=== PATIENT | female | born 1990 | race Caucasian/White ===

== ENCOUNTER 2021-01-13 17:20 | Outpatient (RCR) | payer BC, SELFPAY ==
[2021-01-14] MEDS: RHO(D) IMMUNE GLOBULIN 300 MCG/2 ML SYRINGE IM (17:34)
== END 2021-04-13 23:59 | disposition home or self-care (01) ==
LOC: ANHLAB 17:20
PROVIDERS: Visit Provider Obstetrics & Gynecology
DX: Z29.13 Encounter for prophylactic Rho(D) immune globulin (principal); O36.0190 Maternal care for anti-D [Rh] antibodies, unspecified trimester, not applicable or unspecified; O41.8X90 Other specified disorders of amniotic fluid and membranes, unspecified trimester, not applicable or unspecified; Z3A.00 Weeks of gestation of pregnancy not specified
CPT/HCPCS: 36415; 85461; 90384; 96372; J2790

== ENCOUNTER 2021-05-17 14:21 | Outpatient (RCR) | payer BC, SELFPAY ==
[2021-05-16 08:34] LABS: Hemoglobin 10.3 g/dL (12.0-15.0)
[2021-05-16 08:45] LABS: Glucose 1 Hour PP 50gm Dose 86 mg/dL
[2021-05-16 09:43] LABS: HIV 1/2 Ab P24 Ag Result Negative (Negative)
[2021-05-16 10:56] LABS: Rapid Plasma Reagin Non-Reactive (NonReactive)
[2021-05-17] MEDS: RHO(D) IMMUNE GLOBULIN 300 MCG/2 ML SYRINGE IM (16:59)
== END 2021-05-17 14:25 | disposition home or self-care (01) ==
LOC: ANHLAB 14:21
PROVIDERS: Visit Provider Advanced Practice Midwife
DX: Z11.4 Encounter for screening for human immunodeficiency virus [HIV] (principal); Z29.13 Encounter for prophylactic Rho(D) immune globulin; O36.0130 Maternal care for anti-D [Rh] antibodies, third trimester, not applicable or unspecified; Z3A.00 Weeks of gestation of pregnancy not specified
CPT/HCPCS: 36415; 82947; 85014; 85018; 85461; 86592; 86703; 90384; 96372; G0432; J2790

== ENCOUNTER 2021-07-27 17:28 | Inpatient (IN) | payer BC, SELFPAY ==
[2021-07-27] VITALS (12 sets, daily range): BP systolic 125–147; BP diastolic 76–98; PULSE 61–105
[2021-07-27 18:00] LABS: Basophils Percent Auto 0.3 % (0.2-1.2); Eosinophils Absolute Auto 0.1 K/mm3 (0-0.3); Eosinophils Percent Auto 0.5 % (0-4.4); Hematocrit 35.3 % (37.0-47.0); Hemoglobin 11.6 g/dL (12.0-15.0); Immature Granulocyte Absolute 0.03 K/mm3 (0.00-0.031); Immature Granulocyte Percent A 0.3 % (0-0.5); Lymphocytes Absolute Auto 2.35 K/mm3 (0.9-3.2); Lymphocytes Percent Auto 22.5 % (18.3-44.2); Mean Corpuscular HGB Conc 32.9 g/dl (32-36); Mean Corpuscular Hemoglobin 30.1 pg (26-34); Mean Corpuscular Volume 91.7 fl (80-100); Mean Platelet Volume 10.7 fl (7.4-10.4); Monocytes Absolute Auto 0.6 K/mm3 (0.1-0.6); Monocytes Percent Auto 5.6 % (2.6-8.5); Neutrophils Absolute Auto 7.4 K/mm3 (1.3-6.7); Neutrophils Percent Auto 70.8 % (45.5-73.1); Platelet Count Result 304 k/mm3 (150-375); Red Blood Count 3.85 M/mm3 (4.2-5.4); Red Cell Distribution Width 14.2 % (11.5-14.5); White Blood Count 10.4 K/mm3 (4.5-10.0)
[2021-07-27 18:10] LABS: Add Urine Microscopic? YES; Alanine Aminotransferase 20 U/L (4-35); Albumin Level 3.8 g/dL (3.5-5.1); Alkaline Phosphatase 127 U/L (38-126); Anion Gap 7 mmol/L (8-16); Appearance Urine Cloudy (Clear); Aspartate Amino Transferase 31 U/L (14-36); Bacteria Urine Trace /hpf; Bilirubin Urine Negative (Negative); Bilirubin,Total 0.3 mg/dL (0.2-1.3); Blood Urea Nitrogen 8 mg/dL (7-17); Blood Urine Negative (Negative); Carbon Dioxide 21 mmol/L (22-30); Chloride 106 mmol/L (98-107); Color Urine Yellow (Yellow); Estimated Glomerular Filt Rate > 60; Glucose 76 mg/dL (65-110); Glucose Urine UA Negative (Negative); Ketones Urine Negative (Negative); Leukocyte Esterase Ur Negative LEU/UL (NEGATIVE); Mucus Urine Rare /lpf; Nitrate Urine Negative (Negative); Potassium 3.5 mmol/L (3.4-5.0); Protein Urine Negative (Negative); RBC Urine 0-2 /hpf (0-2); Sodium 134 mmol/L (137-145); Specific Grav Ur 1.011 (1.001-1.035); Squamous Epithelial Cell Urine Occasional /hpf (Few); Uric Acid 3.6 mg/dL (2.5-7.5); Urobilinogen Urine Negative mg/dL (<2.0); WBC Urine 0-3 /hpf (0-3)
[2021-07-27 18:11] LABS: Total Protein Urine Random 12 mg/dL; Ur Ttl Prot Creatinine Ratio 0.27 mg/mg (0-0.20)
--- NOTE | 2021-07-27 18:35 | PC.NURSE ---
Ger Mccarthy CNM on unit and has reviewed lab results and updated on BP's. Order received to continue monitoring BP's for another 4 hrs.
--- NOTE | 2021-07-27 20:01 | PC.NURSE ---
Pt sitting up eating dinner.
--- NOTE | 2021-07-27 20:43 | PC.NURSE ---
Ger Mccarthy CNM called to check on pt. Updated on BP's. Orders received to admit for induction of labor using Cervidil. CNM informed we wouldn't be able to start the induction for awhile.
--- NOTE | 2021-07-27 22:25 | PC.NURSE ---
Transferred to labor room 105 per wheelchair with and personal belongings.
[2021-07-28] VITALS (97 sets, daily range): BP systolic 98–159; BP diastolic 60–105; PULSE 66–182; RESP 18–20; TEMP 36.7–38.1; O2SAT 97–100; BMI 31.2
--- NOTE | 2021-07-28 00:37 | WPDOBADMIT ---
Obstetrics - Admit Note Admission Note: record reviewed. No pertinent additions to the history and/or any subsequent changes in the physical findings that are not consistent with the expected course of the were found. pt admitted to with elevated blood pressures in office and now on admission, discussed with pt gestational hypertension and will proceed with MIL, plan cervdail, anticipate vaginal delivery Additions to the history and/or subsequent changes in the physical findings follow. None.
--- NOTE | 2021-07-28 03:00 | PC.NURSE ---
Pt sleeping. Unable to start induction due to acuity of unit and it would be unsafe.
[2021-07-28] MEDS: DINOPROSTONE 10 MG VAG INSERT VAGINAL (05:10)
[2021-07-28 06:54] LABS: Rapid Plasma Reagin Non-Reactive (NonReactive)
[2021-07-28] MEDS: CALCIUM CARBONATE (TUMS) 500 MG (200 MG ELEMENTAL) PO ×2 (10:49→23:35)
[2021-07-28] MEDS: FAMOTIDINE 20 MG/2 ML VIAL IV PUSH ×2 (11:57→21:06)
[2021-07-28] MEDS: ACETAMINOPHEN 325 MG TABLET 650 MG PO (15:00)
[2021-07-28] MEDS: fentaNYL CITRATE INJ (*CRX) 100 MCG/2 ML VIAL 50 MCG IV PUSH ×3 (16:43→18:30)
--- NOTE | 2021-07-28 16:51 | PM.OBPNLAB ---
Pain Control Date/time seen: 07/28/21 16:51 FHR category 1, contractions irregular, SVE /-2, AROM large amount of clear odorless fluid, plan pitocin and anticipate vaginal delivery
--- NOTE | 2021-07-28 17:08 | WPDANESEPP ---
Anes - Eval Pre Procedure Procedure: labor epidural Date/Time: 07/28/21 17:08 Surgeon: ze Pre Op Diagnosis: Induction of Labor Patient Data Age: 30 Gender: F Height: 1.6 m Weight: 80 kg Last Vital Signs Temp 37.0 C 07/28/21 16:58 Pulse 92 07/28/21 16:56 Resp 20 07/28/21 16:58 BP 125/89 07/28/21 16:56 Allergies Allergy/AdvReac Type Severity Reaction Status Date / Time No Known Allergies Allergy Verified 07/16/21 16:06 Home Medications Medication Instructions Recorded Confirmed Type PNV no.[id number] acid 1 tablet PO DAILY 07/28/21 07/28/21 History [Complete ] aspirin 81 mg PO DAILY 07/28/21 07/28/21 History ferrous sulfate 27 mg PO DAILY 07/28/21 07/28/21 History Laboratory Tests 07/27/21 07/27/21 07/27/21 17:50 17:50 17:50 WBC 10.4 K/mm3 H K/mm3 (4.5-10.0) RBC 3.85 M/mm3 L M/mm3 (4.2-5.4) Hgb 11.6 g/dL L g/dL (12.0-15.0) Hct 35.3 % L % (37.0-47.0) MCV 91.7 fl fl (80-100) MCH 30.1 pg pg (26-34) MCHC 32.9 g/dl g/dl (32-36) RDW 14.2 % % (11.5-14.5) Plt Count 304 k/mm3 k/mm3 (150-375) MPV 10.7 fl H fl (7.4-10.4) Immature Gran % (Auto) 0.3 % % (0-0.5) Neut % (Auto) 70.8 % % (45.5-73.1) Lymph % (Auto) 22.5 % % (18.3-44.2) Larue % (Auto) 5.6 % % (2.6-8.5) Eos % (Auto) 0.5 % % (0-4.4) Baso % (Auto) 0.3 % % (0.2-1.2) Lymph # (Auto) 2.35 K/mm3 K/mm3 (0.9-3.2) Larue # (Auto) 0.6 K/mm3 K/mm3 (0.1-0.6) Eos # (Auto) 0.1 K/mm3 K/mm3 (0-0.3) Baso # (Auto) 0.0 K/mm3 K/mm3 (0.0-0.1) Abs Immat Gran (auto) 0.03 K/mm3 K/mm3 (0.00-0.031) Absolute Neuts (auto) 7.4 K/mm3 H K/mm3 (1.3-6.7) Absolute Nucleated RBC 0.0 K/mm3 K/mm3 (0.0-0.012) Nucleated RBC % 0.0 % % (0.0-0.2) Sodium Potassium Chloride Carbon Dioxide Anion Gap BUN Creatinine Estim Creat Clear Calc Estimated GFR Glucose Uric Acid Calcium Total Bilirubin AST ALT Alkaline Phosphatase Total Protein Albumin Urine Color Yellow (Yellow) Urine Appearance Cloudy H (Clear) Urine pH 7.0 (5.0-9.0) Ur Specific [place] 1.011 (1.001-1.035) Urine Protein Negative mg/dL mg/dL (Negative) Urine Glucose (UA) Negative mg/dL mg/dL (Negative) Urine Ketones Negative mg/dL mg/dL (Negative) Ur Blood (Man) Negative (Negative) Urine Nitrate Negative (Negative) Urine Bilirubin Negative (Negative) Urine Urobilinogen Negative mg/dL mg/dL (<2.0) Ur Leukocyte Esterase Negative REYNA/UL REYNA/UL (NEGATIVE) Urine RBC 0-2 /hpf /hpf (0-2) Urine WBC 0-3 /hpf /hpf (0-3) Ur Squamous Epith Cells Occasional /hpf /hpf (Few) Urine Bacteria Trace /hpf /hpf Urine Mucus Rare /lpf /lpf U Random Total Protein 12 mg/dL mg/dL Urine Creatinine 45.0 mg/dL mg/dL Protein/Creat Ratio 2 0.27 mg/mg H mg/mg (0-0.20) RPR Blood Type Antibody Screen Antibody Identification Antigen Identification CLEMENTE, IgG Interpret CLEMENTE, Poly Interpret CLEMENTE, Complement Interp 07/27/21 07/28/21 07/28/21 17:50 04:48 04:48 WBC RBC Hgb Hct MCV MCH MCHC RDW Plt Count MPV Immature Gran % (Auto) Neut % (Auto) Lymph % (Auto)
[2021-07-28] MEDS: OXYTOCIN 30 UNITS/NS 500 ML 30 UNITS/500 ML BAG IV CONT (17:54)
[2021-07-28] MEDS: LACTATED RINGERS 1,000 ML 125 ML IV CONT ×2 (17:54→19:44)
[2021-07-28] MEDS: ONDANSETRON INJ 4 MG/2 ML VIAL IV PUSH (23:44)
[2021-07-29] VITALS (99 sets, daily range): BP systolic 105–144; BP diastolic 49–96; PULSE 56–158; RESP 16–20; TEMP 36.7–38.1; O2SAT 96–100
[2021-07-29] MEDS: ACETAMINOPHEN 500 MG TABLET 1000 MG PO (00:04)
[2021-07-29] MEDS: AMPICILLIN 2 GM/NS 100 ML 2 GM/100 ML BAG IVPB (00:04)
[2021-07-29] MEDS: AMPICILLIN 1 GM/NS 50 ML 1 GM/50 ML BAG IVPB (04:11)
--- NOTE | 2021-07-29 05:21 | PM.OBPRVD ---
OB - Delivery Note Procedure Delivery date: 07/29/21 Procedure: vaginal delivery Induction method: AROM, Per Pitocin Protocol and Per Cervidil Protocol Delivery monitor: External FHT, External Uterine and Internal Uterine Route of delivery: Laceration Description: Perineal - 2nd Degree Delivery repair: vicryl Specimen: Yes Quantitative Blood Loss (ml): 302 Anesthesia type: Epidural Disposition: Floor Baby Date of : 07/29/21 Time of : 05:01 Weeks of gestation at delivery: 38 gender: Female Weight (pounds): 7 Weight (ounces): 5 presentation: vertex position: Left Occiput Anterior Placenta delivery description: Spontaneous Cord Vessel Description: 3 Vessels, Nuchal Cord, Loose, Reduced, Clamped/Cut and Delayed Cord Clamping score one minute: 8 score five minutes: 9 Narrative: mother and baby in stable condition
[2021-07-29] MEDS: WITCH HAZEL 40 PADS 1 PAD TOPICAL ×2 (05:44→07:17)
[2021-07-29] MEDS: BENZOCAINE 20% AER SPR (*SP) 56 GM CAN 1 SPRAY TOPICAL ×2 (05:44→07:17)
[2021-07-29] MEDS: OXYTOCIN 30 UNITS/NS 500 ML 30 UNITS/500 ML BAG 125 UNITS IV CONT (05:44)
[2021-07-29] MEDS: IBUPROFEN 600 MG TABLET PO ×2 (06:35→14:24)
--- NOTE | 2021-07-29 08:02 | PC.NURSE ---
Patient transferred to post room #291 via wheelchair. Support person present. Oriented to unit, room, information board, rooming in, admission packet and security measures. Patient verbalizes understanding.
[2021-07-29] MEDS: HYDROcodone/acetaminophen (*CRX) 5-325 MG TABLET 1 TAB PO ×2 (08:45→16:09)
[2021-07-29] MEDS: DOCUSATE SODIUM 100 MG CAPSULE PO (14:24)
[2021-07-29] MEDS: MULTIVIT/MIN/PREN/FOL AC/IRON TABLET 1 TAB PO (16:09)
[2021-07-30] MEDS: HYDROcodone/acetaminophen (*CRX) 5-325 MG TABLET 1 TAB PO ×5 (05:03→21:04)
[2021-07-30] MEDS: IBUPROFEN 600 MG TABLET PO ×2 (05:04→14:15)
[2021-07-30 05:19] LABS: Hematocrit 32.6 % (37.0-47.0); Hemoglobin 10.7 g/dL (12.0-15.0)
--- NOTE | 2021-07-30 07:40 | WPDANLDPN2 ---
Anes-Prog Note L&D Date/Time: 07/30/21 07:40 Comfortable throughout: labor and delivery Neuraxial method: epidural Epidural/Spinal procedure site: clean & non-tender Neuro status: Neuro function grossly intact. Cardiovascular status: normal Respiratory status: normal Airway patency: baseline Mental status: baseline Post-Op hydration status: normal Vital Signs: Last Vital Signs Temp 36.7 C 07/29/21 19:20 Pulse 82 07/29/21 19:20 Resp 16 07/29/21 19:20 BP 129/78 07/29/21 19:20 Pulse Ox 100 07/29/21 15:45 Pain score (VAS): 2 I/O: Intake & Output 07/29/21 07/29/21 07/30/21 15:59 23:59 07:59 Intake Total 1480 100 500 Output Total 1000 1700 Balance 480 100 -1200 Post-procedural complaints: none Patient feedback: Patient satisfied with anesthetic care.
[2021-07-30 08:00] VITALS: BP 124/70; PULSE 158; RESP 50; TEMP 36.8; O2SAT 100
--- NOTE | 2021-07-30 08:50 | PM.OBPNVD ---
OB - PN: Subj Subjective Date/time seen: 07/30/21 08:50 Patient comments: no complaints baby status: doing well Cameron feeding status: exclusively bottle feeding OB - PN: Obj Data Labs CBC & Chem 7: 07/30/21 05:08 07/27/21 17:50 Labs: Laboratory Results - last 24 hr 07/30/21 07/30/21 05:08 05:08 Hgb 10.7 L Hct 32.6 L Blood Type B Negative Antibody Screen Positive Antibody Identification Inconclusive Antigen Identification Not Reportable CLEMENTE, IgG Interpret Negative CLEMENTE, Poly Interpret Negative CLEMENTE, Complement Interp Negative OB - PN A/P Plan day: 1 Plan: routine care Time Spent With Patient Time: Total time spent is greater than 50% in coordination of care (as documented) at patient's floor/unit and/or counseling patient: Review of Systems Review of Systems: All systems reviewed & are unremarkable except as noted in HPI and below Exam Const: General: cooperative, healthy appearing and comfortable
[2021-07-30] MEDS: DOCUSATE SODIUM 100 MG CAPSULE PO ×2 (09:26→17:09)
[2021-07-30] MEDS: WITCH HAZEL 40 PADS 1 PAD TOPICAL (09:29)
[2021-07-30] MEDS: BENZOCAINE 20% AER SPR (*SP) 56 GM CAN 1 SPRAY TOPICAL (09:29)
[2021-07-30] MEDS: RHO(D) IMMUNE GLOBULIN 300 MCG/2 ML SYRINGE IM (18:21)
[2021-07-30 19:40] VITALS: BP 137/90; PULSE 62; RESP 16; TEMP 37.1; O2SAT 99
[2021-07-31] VITALS: BP 120/81; PULSE 61
[2021-07-31 03:30] VITALS: BP 132/86; PULSE 67
[2021-07-31] MEDS: HYDROcodone/acetaminophen (*CRX) 5-325 MG TABLET 1 TAB PO ×2 (03:33→07:57)
[2021-07-31] MEDS: BENZOCAINE 20% AER SPR (*SP) 56 GM CAN 1 SPRAY TOPICAL (07:57)
[2021-07-31] MEDS: WITCH HAZEL 40 PADS 1 PAD TOPICAL (07:57)
[2021-07-31] MEDS: DOCUSATE SODIUM 100 MG CAPSULE PO (07:58)
[2021-07-31] MEDS: IBUPROFEN 600 MG TABLET PO (07:58)
[2021-07-31 08:00] VITALS: BP 135/90; PULSE 60; RESP 18; TEMP 36.8
--- NOTE | 2021-07-31 09:59 | PM.OBPNVD ---
OB - PN: Subj Subjective Date/time seen: 07/31/21 09:59 Patient comments: no complaints, pain well controlled and tolerating diet OB - PN: Obj Data Labs CBC & Chem 7: 07/30/21 05:08 07/27/21 17:50 Labs: Laboratory Results - last 24 hr 07/30/21 05:08 Blood Type B Negative Antibody Screen Positive Antibody Identification Inconclusive CLEMENTE, IgG Interpret Negative CLEMENTE, Poly Interpret Negative CLEMENTE, Complement Interp Negative Screen Negative Baby's Blood Type B pos Baby's CLEMENTE Negative Doses of RhIg Required 1 OB - PN A/P Plan day: 2 Plan: routine care and discharge home Time Spent With Patient Time: Total time spent is greater than 50% in coordination of care (as documented) at patient's floor/unit and/or counseling patient: Exam Const: General: comfortable and no acute distress Resp: Effort & Inspection: normal respiratory effort Auscultation: no rales, no rhonchi and no wheezes Cardio: Rate: regular rate Heart sounds: no click, no murmurs and no rubs GI: GI Palp: Yes Soft to palpation and No Tenderness to palpation present (GI) Auscultation: normal bowel sounds Extrem: General: normal to inspection, no pedal edema and no calf tenderness
--- NOTE | 2021-07-31 10:00 | PM.OBDSVD ---
DS: Admitting Diagnosis Discharge Date 07/31/21 Admitting Diagnosis term gestation DS: Discharge Diagnosis Discharge Diagnosis (1) Term delivered: Code(s): O80 - Encounter for full-term uncomplicated delivery Status: Acute OB - DS: Summary OB Procedures : None OB Procedures Intrapartum: Spontaneous Vag Delivery OB Procedures: : None Time Spent with Patient Time attestation: Total time spent providing and/or coordinating discharge services: DS: Data Data Completed and Pending Pending studies at discharge: Pending at discharge 07/29/21 05:15 Surgical [PTH] Routine Labs on day of discharge: Labs from last 24 hours 07/30/21 05:08 Blood Type B Negative Antibody Screen Positive Antibody Identification Inconclusive CLEMENTE, IgG Interpret Negative CLEMENTE, Poly Interpret Negative CLEMENTE, Complement Interp Negative Screen Negative Baby's Blood Type B pos Baby's CLEMENTE Negative Doses of RhIg Required 1 Discharge Plan Discharge Discharging Clinician: Katiana Mckinney Patient Disposition: Home, Self-Care Activity: pelvic rest Diet: regular Patient Instructions: Antibiotic Form Stand Alone Forms: General Discharge Information Follow-up/Referrals: Katiana Mckinney MD [Physician] - Discharge Medications: Continued aspirin 81 mg Tablet 81 mg PO DAILY RF: 0 ferrous sulfate 27 mg iron Tablet 27 mg PO DAILY RF: 0 Complete 30-975 mg-mcg Tablet 1 tablet PO DAILY RF: 0 Date of admission: 07/27/21 17:28 Primary Care Provider: Jessica Mccarthy Admitting Provider: Katiana Mckinney Attending physician on admission: Katiana Mckinney Condition: Stable
[2021-08-01 09:23] VITALS: BP 128/96; PULSE 74; RESP 18; TEMP 37.1; O2SAT 99
== END 2021-07-31 12:00 | disposition home or self-care (01) | DRG 807 ==
LOC: ANHLDR 07-28 07:15 → ANHOB2 07-31 10:01
PROVIDERS: Admitting Provider Obstetrics & Gynecology; PCP Advanced Practice Midwife; Visit Provider Obstetrics & Gynecology
DX: O75.2 Pyrexia during labor, not elsewhere classified (principal); Z37.0 Single live birth; O13.4 Gestational [pregnancy-induced] hypertension without significant proteinuria, complicating childbirth; O76 Abnormality in fetal heart rate and rhythm complicating labor and delivery; O70.1 Second degree perineal laceration during delivery; O43.193 Other malformation of placenta, third trimester; O69.81X0 Labor and delivery complicated by cord around neck, without compression, not applicable or unspecified; Z3A.38 38 weeks gestation of pregnancy
CPT/HCPCS: 36415; 59025; 80053; 81001; 82570; 84156; 84550; 85014; 85018; 85025; 85461; 86592; 86850; 86880; 86900; 86901; 86902; 87086; 88307; 90384; 99199; A9270; J0290; J2405; J2590; J2790; J2795; J3010; J7120